=== PATIENT | male | born 1965 | race Caucasian/White ===

== ENCOUNTER 2021-03-23 18:27 | Emergency (ER) | payer MEDICAID, SELFPAY ==
[~2021-03-23] VITALS: Ht 175.3 cm; Wt 79.5 kg
[~2021-03-23 18:27] MED LIST: INSU100V3 IJ
[2021-03-23 18:49] VITALS: BP 122/65
== END 2021-03-23 19:45 | disposition left against medical advice (07) ==
LOC: EMS 18:30
DX: R10.9 Unspecified abdominal pain (principal); Z53.21 Procedure and treatment not carried out due to patient leaving prior to being seen by health care provider

== ENCOUNTER 2022-08-26 11:06 | Emergency (ER) | payer MEDICAID, OTHER ==
[~2022-08-26] VITALS: Ht 180.3 cm; Wt 90.9 kg
[2022-08-26 11:31] LABS: COVID AG,FIA SOURCE NASOPHARYNGEAL
[2022-08-26 12:12] LABS: INFLUENZA TYPE A NEGATIVE FOR TYPE A (NEGATIVE); INFLUENZA TYPE B NEGATIVE FOR TYPE B (NEGATIVE)
[2022-08-26] MEDS ORDERED: NIRM1TAB4 PO (12:41)
[2022-08-26] MEDS ORDERED: CLOP75TA60 PO (12:51)
[2022-08-26] MEDS ORDERED: INSU100I26 (12:51)
[2022-08-26 13:00] VITALS: BP 118/66
== END 2022-08-26 13:05 | disposition home or self-care (01) ==
LOC: EMS 11:13
DX: U07.1 COVID-19 (principal); E11.9 Type 2 diabetes mellitus without complications; I10 Essential (primary) hypertension
CPT/HCPCS: 82962; 87804; 99283